=== PATIENT | female | born 1975 | race Caucasian/White ===

== ENCOUNTER 2018-12-15 10:15 | Outpatient (CLI) | payer MEDICARE, MEDICAID ==
--- NOTE | 2018-12-15 13:13 | ULT ---
BILATERAL BREAST ULTRASOUND: HISTORY: Breast pain. COMPARISON: Mammogram from the same day. FINDINGS: Corresponding to the area of interest in the 12 o'clock region of both breasts is a thick band of teddy ast tissue. No abnormal mass. Scattered simple cysts. IMPRESSION: BI-RADS 2 - benign findings. Continued annual mammographic screening is recommended. POS: OFF
== END 2018-12-15 10:16 | disposition home or self-care (01) ==
LOC: BICMAMMO 10:15
PROVIDERS: ATTEND Family Medicine
DX: N64.4 Mastodynia (principal)
CPT/HCPCS: 76642 ×2; 77066; G0279

== ENCOUNTER 2019-01-26 02:15 | Emergency (ER) | payer MEDICARE, MEDICAID ==
[2019-01-26 03:12] LABS: #Eosinphils 0.3 thou/uL (0.0-0.7); #Lymphocytes 1.3 thou/uL (1.20-3.40); #Monocytes 0.5 thou/uL (0.11-0.59); #Neutrophils 3.8 thou/uL (1.40-6.50); %Basophils 0.7 % (0.0-1.0); %Eosinophils 5.3 % (0.0-10.0); %Lymphocytes 21.8 % (21.0-51.0); %Monocytes 8.1 % (0.0-10.0); %Neutrophils 64.2 % (42.0-75.0); Mean Corpuscular HGB CONC 33.7 g/dL (32.0-36.0); Mean Corpuscular Hemoglobin 34.4 pg (27.0-31.0); Platelet Count 160 thou/uL (130-400); RBC Distribution Width 12.9 % (11.5-14.5); Red Blood Cell (RBC) Count 2.89 mill/uL (4.20-5.40)
[2019-01-26 03:33] LABS: ALT (SGPT) Less than 7 U/L (8-55); AST (SGOT) 9 U/L (5-34); Albumin 3.7 g/dL (3.5-5.0); Alkaline Phosphatase 83 U/L (40-110); Anion Gap 14 mmol/L (10-20); BUN (Urea Nitrogen) 42 mg/dL (7.0-18.7); Bilirubin, Total 0.5 mg/dL (0.2-1.2); Calc. Creatinine Clearance 0 mL/min (70-130); Calcium 8.9 mg/dL (7.8-10.44); Carbon Dioxide 31 mmol/L (22-29); Chloride 100 mmol/L (98-107); Estimated GFR-MDRD 7; Globulin 2.5 g/dL (2.4-3.5); Glucose 109 mg/dL (70-105); Potassium 4.9 mmol/L (3.5-5.1); Protein, Total 6.2 g/dL (6.0-8.3); Sodium 140 mmol/L (136-145)
--- NOTE | 2019-01-26 07:44 | ULT ---
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 COMPARISON: No relevant prior studies available. FINDINGS: The left subclavian vein is patent without thrombus. The left brachial artery and vein are patent. Th e left radial artery is patent. The left internal jugular vein is patent without thrombus. The left ulnar vein is patent without thrombus. The left radial vein is patent without thrombus. Left upper ar m graft is patent. The left basilic vein is patent without thrombus. The left cephalic vein is patent without thrombus. The left cephalic vein of the mid and upper arm is patent and dilated. At th e medial aspect of the elbow there is a 5.6 x 3.6 cm avascular heterogeneous mass consistent with hematoma. Soft tissue edema of the arm. IMPRESSION: 1. Patent left upper extremity graft. 2. Large hematoma medial aspect of the left elbow. Thank you for allowing us to participate in the care of your patient. Dictated and Authenticated by: Juana Peters MD 01/26/2019 5:27 AM Central Time ([place] & [place]) FINAL REPORT: I agree with the preliminary report report provided. Transcribed Date/Time: 01/26/2019 7:49 AM
== END 2019-01-26 05:56 | disposition home or self-care (01) ==
LOC: ERS 02:15
DX: I97.621 Postprocedural hematoma of a circulatory system organ or structure following other procedure (principal); M19.90 Unspecified osteoarthritis, unspecified site; N18.6 End stage renal disease; Z99.2 Dependence on renal dialysis; Z79.899 Other long term (current) drug therapy
CPT/HCPCS: 36415; 80053; 85025; 93931

== ENCOUNTER 2019-05-08 14:21 | Outpatient (CLI) | payer MEDICARE, MEDICAID ==
--- NOTE | 2019-05-08 15:16 | MRI ---
EXAM: MRI of the brain without contrast HISTORY: Migraine headaches COMPARISON: None TECHNIQUE: Multiplanar multisequence MR images were obtained of the brain without IV contrast. FINDINGS: The brain demonstrates normal signal intensity on all obtained sequences. No restricted diffusion. No hydronephrosis. No extra-axial fluid collection or intracranial hemorrhage. The expected flow voids are present. Corpus callosum, pituitary, and craniocervical junction are within normal limits. The calvarium and overlying soft tissues are unremarkable. The paranasal sinuses and mastoid air cells are well aerated. IMPRESSION: No evidence of acute intracranial abnormality.
== END 2019-05-08 14:22 | disposition home or self-care (01) ==
LOC: BICMRI 14:21
PROVIDERS: ATTEND Psychiatry & Neurology Neurology
DX: G43.019 Migraine without aura, intractable, without status migrainosus (principal)
CPT/HCPCS: 70551

== ENCOUNTER 2019-06-22 21:06 | Emergency (ER) | payer MEDICARE, OTHER ==
[2019-06-22] MEDS ORDERED: Lidocaine 1% w/Epinephrine 1:100K 20 ML VIAL ONE (23:26)
[2019-06-22] MEDS ORDERED: Acetaminophen 500 MG TAB ONE (23:33)
[2019-06-22] MEDS ORDERED: Fentanyl 100 MCG/2 ML VIAL ONE (23:33)
== END 2019-06-23 00:45 | disposition home or self-care (01) ==
LOC: ERS 21:06
DX: T82.838A Hemorrhage due to vascular prosthetic devices, implants and grafts, initial encounter (principal); D68.9 Coagulation defect, unspecified; F17.210 Nicotine dependence, cigarettes, uncomplicated
CPT/HCPCS: 94760; 96372; J3010

== ENCOUNTER 2020-03-01 10:54 | Outpatient (CLI) | payer MEDICARE, MEDICAID | END 2020-03-01 10:55 | disposition home or self-care (01) | LOC: CTENTCT 10:54 | PROVIDERS: ATTEND Specialist | DX: J32.8 Other chronic sinusitis (principal); G50.1 Atypical facial pain | CPT/HCPCS: 70486 ==

== ENCOUNTER 2020-03-20 09:23 | Outpatient (CLI) | payer MEDICARE, MEDICAID ==
--- NOTE | 2020-03-20 10:52 | MMO ---
Bilateral MAMMO Bilat Screen [facility]. CLINICAL HISTORY: Patient is 45 years old and is seen for screening. The patient has the following family history of breast cancer: cousin female, at age 27. The patient has no personal history of cancer. VIEWS: The views performed were: bilateral craniocaudal with tomosynthesis and bilateral mediolateral oblique with tomosynthesis. FILMS COMPARED: The present examination has been compared to prior imaging studies performed at [facility] on 12/15/2018, and at [facility] on 09/29/2017. This study has been interpreted with the assistance of computer-aided detection. MAMMOGRAM FINDINGS: The breasts are heterogeneously dense, which could obscure a lesion on mammography. Finding 1: There are stable benign appearing calcifications seen in both breasts. Finding 2: There are stable benign appearing densities seen in both breasts. There are no suspicious masses, suspicious calcifications, or new areas of architectural distortion. IMPRESSION: THERE IS NO MAMMOGRAPHIC EVIDENCE OF MALIGNANCY. A ROUTINE FOLLOW-UP MAMMOGRAM IN 1 YEAR IS RECOMMENDED. THE RESULTS OF THIS EXAM WERE SENT TO THE PATIENT. ACR BI-RADS Category 2 - Benign finding MAMMOGRAPHY NOTE: 1. A negative mammogram report should not delay a biopsy if a dominant of clinically suspicious mass is present. 2. Approximately 10% to 15% of breast cancers are not detected by mammography. 3. Adenosis and dense breasts may obscure an underlying neoplasm. Reported by: JONG VINSON MD Electonically Signed: [id number]
--- NOTE | 2020-03-20 11:32 | BD ---
BONE DENSITOMETRY USING DEXA: Date: 03/20/2020 HISTORY: Screening for osteoporosis. FINDINGS: Lumbar Spine: BMD (g/cm2) L1 1.008 T-Score: 0.2 Z-Score: 0.5 L2 1.020 T-Score: -0.1 Z-Score: 0.3 L3 1.048 T-Score: -0.3 Z-Score: 0.0 L4 1.031 T-Score: -0.3 Z-Score: 0.1 L1-L4 1.028 T-Score: -0.2 Z-Score: 0.2 Femoral Neck: 0.703 T-Score: -1.3 Z-Score: -0.9 Total Femur: 0.921 T-Score: -0.2 Z-Score: 0.1 IMPRESSION: Osteopenia. POS: AH
== END 2020-03-20 09:24 | disposition home or self-care (01) ==
LOC: BICMAMMO 09:23
PROVIDERS: ATTEND Family Medicine
DX: Z12.31 Encounter for screening mammogram for malignant neoplasm of breast (principal); Z13.820 Encounter for screening for osteoporosis; N05.1 Unspecified nephritic syndrome with focal and segmental glomerular lesions; N25.81 Secondary hyperparathyroidism of renal origin; M85.859 Other specified disorders of bone density and structure, unspecified thigh; Z76.82 Awaiting organ transplant status; Z99.2 Dependence on renal dialysis; Z80.3 Family history of malignant neoplasm of breast
CPT/HCPCS: 77063; 77067; 77080

== ENCOUNTER 2020-03-27 21:35 | Emergency (ER) | payer MEDICARE, MEDICAID ==
--- NOTE | 2020-03-27 22:43 | RAD ---
Portable frontal chest radiograph: 03/27/2020 COMPARISON: 06/23/2019 HISTORY: Right-sided chest pain with shortness of breath FINDINGS: There is a stable left-sided dialysis catheter. The heart and mediastinal contours are stab le. There is no pneumothorax or pleural fluid and no focal consolidation or alveolar edema. IMPRESSION: No acute findings.
[2020-03-27 22:44] LABS: #Lymphocytes 0.8 thou/uL (1.20-3.40); #Monocytes 0.3 thou/uL (0.11-0.59); #Neutrophils 4.3 thou/uL (1.40-6.50); %Basophils 0.4 % (0.0-1.0); %Eosinophils 0.6 % (0.0-10.0); %Lymphocytes 15.2 % (21.0-51.0); %Monocytes 4.9 % (0.0-10.0); %Neutrophils 78.8 % (42.0-75.0); Hemoglobin 12.6 g/dL (12.0-16.0); Mean Corpuscular HGB CONC 33.7 g/dL (32.0-36.0); Mean Corpuscular Hemoglobin 34.4 pg (27.0-31.0); Mean Platelet Volume 7.1 fL (7.4-10.4); Platelet Count 207 thou/uL (130-400); RBC Distribution Width 13.5 % (11.5-14.5); Red Blood Cell (RBC) Count 3.66 mill/uL (4.20-5.40); White Blood Cell (WBC) Count 5.4 thou/uL (4.8-10.8)
[2020-03-27 22:57] LABS: ALT (SGPT) Less than 7 U/L (8-55); AST (SGOT) 13 U/L (5-34); Albumin 4.2 g/dL (3.5-5.0); Alkaline Phosphatase 82 U/L (40-110); Anion Gap 20 mmol/L (10-20); BUN (Urea Nitrogen) 20 mg/dL (7.0-18.7); Bilirubin, Total 0.5 mg/dL (0.2-1.2); Calc. Creatinine Clearance 0 mL/min (70-130); Calcium 8.9 mg/dL (7.8-10.44); Carbon Dioxide 23 mmol/L (22-29); Chloride 101 mmol/L (98-107); Globulin 2.9 g/dL (2.4-3.5); Glucose 94 mg/dL (70-105); Potassium 3.9 mmol/L (3.5-5.1); Protein, Total 7.1 g/dL (6.0-8.3); Sodium 140 mmol/L (136-145)
--- NOTE | 2020-03-30 13:52 | EKG ---
Test Reason : Blood Pressure : / mmHG Vent. Rate : 071 BPM Atrial Rate : 071 BPM P-R Int : 166 ms QRS Dur : 084 ms QT Int : 450 ms P-R-T Axes : 055 003 037 degrees QTc Int : 489 ms Normal sinus rhythm Prolonged QT Abnormal ECG Confirmed by HERRERA TOBIN ([id number]), film or videotape editor PRETTY ROBERSON ([id number]) on 03/30/2020 1:51:50 PM Referred By: Confirmed By:HERRERA TOBIN
== END 2020-03-28 | disposition home or self-care (01) ==
LOC: ERS 21:35
DX: R07.9 Chest pain, unspecified (principal); R06.02 Shortness of breath; N18.6 End stage renal disease; M06.9 Rheumatoid arthritis, unspecified; Z87.891 Personal history of nicotine dependence; Z79.899 Other long term (current) drug therapy
CPT/HCPCS: 36415; 71045; 80053; 83880; 84484; 85025; 93005

== ENCOUNTER 2020-09-05 21:14 | Emergency (ER) | payer MEDICARE, MEDICAID | END 2020-09-05 22:52 | disposition home or self-care (01) | LOC: ERS 21:14 | DX: S92.515A Nondisplaced fracture of proximal phalanx of left lesser toe(s), initial encounter for closed fracture (principal); Z87.891 Personal history of nicotine dependence; M06.9 Rheumatoid arthritis, unspecified; W22.8XXA Striking against or struck by other objects, initial encounter ==

== ENCOUNTER 2020-09-30 15:21 | Emergency (ER) | payer MEDICARE, MEDICAID | END 2020-09-30 16:21 | disposition home or self-care (01) | LOC: ERS 15:21 | DX: U07.1 COVID-19 (principal); R43.0 Anosmia; N18.6 End stage renal disease; M06.9 Rheumatoid arthritis, unspecified; Z87.891 Personal history of nicotine dependence | CPT/HCPCS: 0241U; 80053; 85025; 36415; 99283 ==

== ENCOUNTER 2021-03-22 23:05 | Inpatient (IN) | payer MEDICARE, MEDICAID ==
[2021-03-23 00:35] VITALS: BMI 33.9
[2021-03-23] MEDS ORDERED: Acetaminophen 325 MG TAB PO PRN ×2 (01:15→01:31)
[2021-03-23] MEDS ORDERED: Ondansetron ODT 4 MG TAB SL PRN (01:15)
[2021-03-23] MEDS ORDERED: Ondansetron PF 4 MG/2 ML Vial IVP PRN ×2 (01:15→01:31)
[2021-03-23] MEDS: Albumin 25% 25 GM/100 ML BOT IVPB SCH ×4 (02:24→21:53)
[2021-03-23] MEDS ORDERED: cloNIDine 0.1 MG TAB PO SCH (02:30)
[2021-03-23 05:34] LABS: #Eosinphils 0.1 thou/uL (0.0-0.7); #Monocytes 0.6 thou/uL (0.11-0.59); #Neutrophils 4.7 thou/uL (1.40-6.50); %Basophils 0.2 % (0.0-1.0); %Eosinophils 1.2 % (0.0-10.0); %Lymphocytes 15.3 % (21.0-51.0); %Monocytes 9.8 % (0.0-10.0); %Neutrophils 73.6 % (42.0-75.0); Hemoglobin 8.3 g/dL (12.0-16.0); Mean Corpuscular HGB CONC 34.2 g/dL (32.0-36.0); Mean Corpuscular Hemoglobin 32.3 pg (27.0-31.0); Mean Corpuscular Volume 94.6 fL (78.0-98.0); Mean Platelet Volume 7.2 fL (7.4-10.4); Platelet Count 151 thou/uL (130-400); RBC Distribution Width 12.5 % (11.5-14.5); Red Blood Cell (RBC) Count 2.55 mill/uL (4.20-5.40); White Blood Cell (WBC) Count 6.3 thou/uL (4.8-10.8)
[2021-03-23 05:59] LABS: Anion Gap 12 mmol/L (10-20); BUN (Urea Nitrogen) 59 mg/dL (7.0-18.7); Calc. Creatinine Clearance 50 mL/min (70-130); Calcium 8.3 mg/dL (7.8-10.44); Carbon Dioxide 21 mmol/L (22-29); Chloride 111 mmol/L (98-107); Glucose 108 mg/dL (70-105); Magnesium 1.8 mg/dL (1.6-2.6); Potassium 3.9 mmol/L (3.5-5.1); Sodium 140 mmol/L (136-145)
[2021-03-23] MEDS ORDERED: TACROLIMUS 1 MG PO SCH (09:00)
[2021-03-23] MEDS ORDERED: TACROLIMUS 4 MG PO SCH (09:00)
[2021-03-23] MEDS: Calcium Carbonate 600 MG + Vit D TAB PO SCH (09:23)
[2021-03-23] MEDS: Mycophenolate ER 180 MG TAB PO SCH ×2 (09:23→15:34)
[2021-03-23] MEDS: Spironolactone 25 MG TAB PO SCH (09:23)
[2021-03-23] MEDS: cloNIDine 0.2 MG TAB PO SCH (09:24)
[2021-03-23] MEDS: Carvedilol 25 MG TAB PO SCH ×2 (09:24→21:55)
[2021-03-23] MEDS: NIFEdipine XL 90 MG TAB PO SCH ×2 (09:24→21:55)
[2021-03-23] MEDS: Losartan 25 MG TAB PO SCH (09:24)
[2021-03-23] MEDS: predniSONE 5 MG TAB PO SCH (09:24)
[2021-03-23] MEDS: Furosemide 100 MG/10 ML VIAL SLOW IVP SCH ×2 (10:51→21:54)
[2021-03-23] MEDS: Atorvastatin Calcium 20 MG TAB PO SCH (21:55)
[2021-03-24] MEDS: Albumin 25% 25 GM/100 ML BOT IVPB SCH ×4 (03:00→22:30)
[2021-03-24 06:02] LABS: #Eosinphils 0.1 thou/uL (0.0-0.7); #Lymphocytes 0.8 thou/uL (1.20-3.40); #Monocytes 0.5 thou/uL (0.11-0.59); %Basophils 0.1 % (0.0-1.0); %Eosinophils 1.7 % (0.0-10.0); %Lymphocytes 11.7 % (21.0-51.0); %Monocytes 7.7 % (0.0-10.0); %Neutrophils 78.7 % (42.0-75.0); Hemoglobin 8.2 g/dL (12.0-16.0); Mean Corpuscular HGB CONC 34.5 g/dL (32.0-36.0); Mean Corpuscular Hemoglobin 32.8 pg (27.0-31.0); Mean Corpuscular Volume 95.2 fL (78.0-98.0); Mean Platelet Volume 6.7 fL (7.4-10.4); Platelet Count 144 thou/uL (130-400); RBC Distribution Width 12.4 % (11.5-14.5); Red Blood Cell (RBC) Count 2.49 mill/uL (4.20-5.40); White Blood Cell (WBC) Count 6.4 thou/uL (4.8-10.8)
[2021-03-24 06:27] LABS: Anion Gap 12 mmol/L (10-20); BUN (Urea Nitrogen) 46 mg/dL (7.0-18.7); Calc. Creatinine Clearance 61 mL/min (70-130); Carbon Dioxide 24 mmol/L (22-29); Chloride 108 mmol/L (98-107); Glucose 86 mg/dL (70-105); Magnesium 1.7 mg/dL (1.6-2.6); Potassium 3.8 mmol/L (3.5-5.1); Sodium 140 mmol/L (136-145)
[2021-03-24] MEDS ORDERED: Tacrolimus 1 MG CAP PO SCH ×2 (09:00→12:30)
[2021-03-24] MEDS: Mycophenolate ER 180 MG TAB PO SCH ×2 (09:22→20:23)
[2021-03-24] MEDS: cloNIDine 0.2 MG TAB PO SCH (09:23)
[2021-03-24] MEDS: Losartan 25 MG TAB PO SCH (09:23)
[2021-03-24] MEDS: NIFEdipine XL 90 MG TAB PO SCH ×2 (09:23→20:22)
[2021-03-24] MEDS: Carvedilol 25 MG TAB PO SCH ×2 (09:23→20:24)
[2021-03-24] MEDS: Calcium Carbonate 600 MG + Vit D TAB PO SCH (09:23)
[2021-03-24] MEDS: Spironolactone 25 MG TAB PO SCH (09:23)
[2021-03-24] MEDS: predniSONE 5 MG TAB PO SCH (09:23)
[2021-03-24] MEDS: Furosemide 100 MG/10 ML VIAL SLOW IVP SCH ×2 (11:45→22:25)
[2021-03-24] MEDS: Tacrolimus 1 MG CAP PO SCH (20:20)
[2021-03-24] MEDS: Atorvastatin Calcium 20 MG TAB PO SCH (20:24)
[2021-03-25] MEDS: Albumin 25% 25 GM/100 ML BOT IVPB SCH ×4 (03:41→20:35)
[2021-03-25 06:16] LABS: #Eosinphils 0.1 thou/uL (0.0-0.7); #Lymphocytes 0.8 thou/uL (1.20-3.40); #Monocytes 0.5 thou/uL (0.11-0.59); #Neutrophils 4.4 thou/uL (1.40-6.50); %Basophils 0.1 % (0.0-1.0); %Eosinophils 1.8 % (0.0-10.0); %Lymphocytes 13.9 % (21.0-51.0); %Monocytes 7.9 % (0.0-10.0); %Neutrophils 76.4 % (42.0-75.0); Hemoglobin 8.4 g/dL (12.0-16.0); Mean Corpuscular HGB CONC 35.4 g/dL (32.0-36.0); Mean Corpuscular Hemoglobin 33.1 pg (27.0-31.0); Mean Corpuscular Volume 93.7 fL (78.0-98.0); Mean Platelet Volume 6.8 fL (7.4-10.4); Platelet Count 153 thou/uL (130-400); RBC Distribution Width 12.4 % (11.5-14.5); Red Blood Cell (RBC) Count 2.53 mill/uL (4.20-5.40); White Blood Cell (WBC) Count 5.8 thou/uL (4.8-10.8)
[2021-03-25 06:39] LABS: Anion Gap 15 mmol/L (10-20); BUN (Urea Nitrogen) 45 mg/dL (7.0-18.7); Calc. Creatinine Clearance 57 mL/min (70-130); Calcium 9.3 mg/dL (7.8-10.44); Carbon Dioxide 22 mmol/L (22-29); Chloride 108 mmol/L (98-107); Glucose 84 mg/dL (70-105); Magnesium 1.8 mg/dL (1.6-2.6); Sodium 141 mmol/L (136-145)
[2021-03-25] MEDS ORDERED: Albumin 25% 25 GM/100 ML BOT IVPB SCH (08:30)
[2021-03-25] MEDS: cloNIDine 0.2 MG TAB PO SCH (08:46)
[2021-03-25] MEDS: Tacrolimus 1 MG CAP PO SCH ×2 (08:47→20:34)
[2021-03-25] MEDS: predniSONE 5 MG TAB PO SCH (08:47)
[2021-03-25] MEDS: Spironolactone 25 MG TAB PO SCH (08:47)
[2021-03-25] MEDS: NIFEdipine XL 90 MG TAB PO SCH ×2 (08:48→20:34)
[2021-03-25] MEDS: Losartan 25 MG TAB PO SCH (08:48)
[2021-03-25] MEDS: Calcium Carbonate 600 MG + Vit D TAB PO SCH (08:48)
[2021-03-25] MEDS: Carvedilol 25 MG TAB PO SCH ×2 (08:48→20:35)
[2021-03-25] MEDS: Furosemide 80 MG TAB PO SCH ×2 (08:48→14:17)
[2021-03-25] MEDS: Mycophenolate ER 180 MG TAB PO SCH ×2 (08:48→20:34)
[2021-03-25] MEDS ORDERED: Furosemide 20 MG TAB PO SCH (09:00)
[2021-03-25] MEDS: Atorvastatin Calcium 20 MG TAB PO SCH (20:35)
[2021-03-26] MEDS: Albumin 25% 25 GM/100 ML BOT IVPB SCH (03:24)
[2021-03-26 05:10] LABS: #Eosinphils 0.1 thou/uL (0.0-0.7); #Lymphocytes 0.8 thou/uL (1.20-3.40); #Monocytes 0.5 thou/uL (0.11-0.59); #Neutrophils 4.5 thou/uL (1.40-6.50); %Basophils 0.1 % (0.0-1.0); %Eosinophils 1.4 % (0.0-10.0); %Lymphocytes 13.6 % (21.0-51.0); %Monocytes 8.9 % (0.0-10.0); Hemoglobin 8.4 g/dL (12.0-16.0); Mean Corpuscular Hemoglobin 33.1 pg (27.0-31.0); Mean Corpuscular Volume 94.4 fL (78.0-98.0); Mean Platelet Volume 6.7 fL (7.4-10.4); Platelet Count 168 thou/uL (130-400); RBC Distribution Width 12.4 % (11.5-14.5); Red Blood Cell (RBC) Count 2.55 mill/uL (4.20-5.40); White Blood Cell (WBC) Count 5.9 thou/uL (4.8-10.8)
[2021-03-26 05:28] LABS: Anion Gap 13 mmol/L (10-20); BUN (Urea Nitrogen) 41 mg/dL (7.0-18.7); Calc. Creatinine Clearance 58 mL/min (70-130); Calcium 9.2 mg/dL (7.8-10.44); Carbon Dioxide 24 mmol/L (22-29); Chloride 108 mmol/L (98-107); Glucose 80 mg/dL (70-105); Sodium 141 mmol/L (136-145)
[2021-03-26 08:11] VITALS: TEMP 98.8
[2021-03-26] MEDS: Tacrolimus 1 MG CAP PO SCH (08:11)
[2021-03-26] MEDS: cloNIDine 0.2 MG TAB PO SCH (08:11)
[2021-03-26] MEDS: Losartan 25 MG TAB PO SCH (08:12)
[2021-03-26] MEDS: Mycophenolate ER 180 MG TAB PO SCH (08:12)
[2021-03-26] MEDS: Carvedilol 25 MG TAB PO SCH (08:12)
[2021-03-26] MEDS: Spironolactone 25 MG TAB PO SCH (08:12)
[2021-03-26] MEDS: Calcium Carbonate 600 MG + Vit D TAB PO SCH (08:12)
[2021-03-26] MEDS: NIFEdipine XL 90 MG TAB PO SCH (08:12)
[2021-03-26] MEDS: predniSONE 5 MG TAB PO SCH (08:12)
[2021-03-26] MEDS: Furosemide 80 MG TAB PO SCH (08:12)
[2021-03-26 11:28] VITALS: BP 114/70
== END 2021-03-26 11:30 | disposition home or self-care (01) | DRG 699 ==
LOC: 2NO 23:05
PROVIDERS: ADMIT Internal Medicine; ATTEND Internal Medicine
DX: N04.1 Nephrotic syndrome with focal and segmental glomerular lesions (principal); E87.1 Hypo-osmolality and hyponatremia; Z94.0 Kidney transplant status; N17.9 Acute kidney failure, unspecified; N05.9 Unspecified nephritic syndrome with unspecified morphologic changes; Z20.822 Contact with and (suspected) exposure to COVID-19; E78.5 Hyperlipidemia, unspecified; K21.9 Gastro-esophageal reflux disease without esophagitis; D63.1 Anemia in chronic kidney disease; D72.829 Elevated white blood cell count, unspecified; E66.01 Morbid (severe) obesity due to excess calories; N18.30 Chronic kidney disease, stage 3 unspecified; Z88.8 Allergy status to other drugs, medicaments and biological substances; Z88.1 Allergy status to other antibiotic agents; Z88.6 Allergy status to analgesic agent; Z79.899 Other long term (current) drug therapy; Z79.52 Long term (current) use of systemic steroids; Z90.49 Acquired absence of other specified parts of digestive tract; Z98.51 Tubal ligation status; Z68.31 Body mass index [BMI] 31.0-31.9, adult
CPT/HCPCS: 36415; 80048; 80197; 83735; 85025; 93306; J1940; J7507; J7512; J7518; P9047

== ENCOUNTER 2021-11-26 22:46 | Emergency (ER) | payer OTHER, MEDICAID, MEDICARE ==
[2021-11-26] MEDS ORDERED: Acetaminophen 500 MG TAB ONE (23:45)
== END 2021-11-27 00:15 | disposition home or self-care (01) ==
LOC: ERS 22:46
DX: S92.512A Displaced fracture of proximal phalanx of left lesser toe(s), initial encounter for closed fracture (principal); S93.402A Sprain of unspecified ligament of left ankle, initial encounter; M06.9 Rheumatoid arthritis, unspecified; N18.6 End stage renal disease; Z94.0 Kidney transplant status; Z87.891 Personal history of nicotine dependence; W18.09XA Striking against other object with subsequent fall, initial encounter

== ENCOUNTER 2022-04-14 07:44 | Outpatient (CLI) | payer OTHER | END 2022-04-14 07:45 | disposition home or self-care (01) | LOC: CT 07:44 | PROVIDERS: ATTEND Surgery | DX: K43.2 Incisional hernia without obstruction or gangrene (principal); R91.1 Solitary pulmonary nodule; Z94.0 Kidney transplant status; K43.9 Ventral hernia without obstruction or gangrene; Z90.49 Acquired absence of other specified parts of digestive tract; Z98.890 Other specified postprocedural states | CPT/HCPCS: 74176 ==